=== PATIENT | female | born 1970 | race Caucasian/White ===

== ENCOUNTER → 2017-01-26 | Outpatient (CLI) | payer BC | LOC: CARL-LAB 08:51 | PROVIDERS: Family Medicine | DX: R53.83 Other fatigue (principal); R79.0 Abnormal level of blood mineral; E53.8 Deficiency of other specified B group vitamins; E03.9 Hypothyroidism, unspecified; E55.9 Vitamin D deficiency, unspecified; E60 Dietary zinc deficiency ==